=== PATIENT | male | born 1955 | race Two or more races ===

== ENCOUNTER 2023-11-22 11:56 | Emergency (ER) | payer OTHER ==
[~2023-11-22] VITALS: Ht 177.8 cm; Wt 72.6 kg
[2023-11-22] MEDS ORDERED: FOSAMAX70 MG PO (12:24)
[2023-11-22] MEDS ORDERED: AMLODIPINE-OLM1 EAC3 (12:25)
[2023-11-22] MEDS ORDERED: VYVANSE40 MG PO (12:25)
[2023-11-22] MEDS ORDERED: ROSUVASTATIN CA10 MG PO (12:25)
[2023-11-22] MEDS ORDERED: cloNIDine HCL 0.2 MG TABLET PO STA (12:56)
[2023-11-22] MEDS ORDERED: CLONIDINE HCL 0.1 MG TABLET PO ONE (12:57)
== END 2023-11-22 14:19 | disposition home or self-care (01) ==
LOC: ER 11:58
DX: I10 Essential (primary) hypertension (principal)

== ENCOUNTER 2024-05-18 14:49 | Outpatient (CLI) | payer OTHER ==
[~2024-05-18 14:49] MED LIST: AMLODIPINE-OLM1 EAC3; FOSAMAX70 MG PO; ROSUVASTATIN CA10 MG PO; VYVANSE40 MG PO
== END 2024-05-18 14:57 | disposition home or self-care (01) ==
LOC: RAD 14:49
DX: I70.0 Atherosclerosis of aorta (principal); F17.210 Nicotine dependence, cigarettes, uncomplicated

== ENCOUNTER 2024-08-09 09:38 | Outpatient (CLI) | payer OTHER | END 2024-08-09 09:44 | disposition home or self-care (01) | LOC: RAD 09:38 | DX: M54.2 Cervicalgia (principal); M99.01 Segmental and somatic dysfunction of cervical region; M54.6 Pain in thoracic spine; M99.02 Segmental and somatic dysfunction of thoracic region; M54.51 Vertebrogenic low back pain; M99.03 Segmental and somatic dysfunction of lumbar region ==